=== PATIENT | male | born 1960 | race Two or more races ===

== ENCOUNTER 2020-11-23 05:55 | Day surgery (SDC) | payer OTHER ==
[~2020-11-23 05:55] MED LIST: BYSTOLIC5 MG PO; COZAAR100 MG PO; VYTORIN 10-201 EACH PO
[2020-11-23] MEDS ORDERED: PERCOCET 5-3251 EACH PO (08:48)
[2020-11-23] MEDS ORDERED: RECTICARE30 GM TOP (08:48)
== END 2020-11-23 14:35 | disposition home or self-care (01) ==
LOC: CIR.AMB 05:55
PROVIDERS: ATTEND Surgery
DX: K62.0 Anal polyp (principal); K64.8 Other hemorrhoids; K64.4 Residual hemorrhoidal skin tags; Z20.822 Contact with and (suspected) exposure to COVID-19